=== PATIENT | male | born 1955 | race Caucasian/White ===

== ENCOUNTER 2021-12-25 23:20 | Emergency (ER) | payer OTHER ==
[~2021-12-25] VITALS: Ht 175.3 cm; Wt 88.5 kg
[2021-12-25 23:43] VITALS: BP 151/71
--- NOTE | 2021-12-26 00:15 | NUR ---
received pt from intake and placed to bed 12. pt currently a/o x 4, gcs 15. able to move all extremities freely. pt is a 66 year old male with hx of HTN coming from home for cc of RLQ abd pain that started at 2200 last night. pt reports increased nausea and rates pain as 7/10 and throbbing. sts has loss of appetite at this time. currently pending for CT
--- NOTE | 2021-12-26 00:19 | NUR ---
Dr. Funk at bedside for MSE
[2021-12-26 00:32] LABS: BASOPHILS % (AUTO) 0.2 % (0.0-2.0); EOSINOPHILS % (AUTO) 0.2 % (0.0-4.0); HEMATOCRIT 40.2 % (36-52); HEMOGLOBIN 13.6 g/dL (12.0-18.0); LYMPHOCYTES # (AUTO) 1.7 K/uL (2.0-11.5); MEAN CORPUSCULAR HEMOGLOBIN 31 pg (27-31); MEAN CORPUSCULAR HGB CONC 34 g/dL (33-37); MEAN CORPUSCULAR VOLUME 90.6 fL (80-94); MONOCYTES # (AUTO) 0.7 K/uL (0.8-1.0); MONOCYTES % (AUTO) 6.5 % (1.7-9.3); NEUTROPHILS # (AUTO) 8.1 K/uL (1.8-7.7); NEUTROPHILS % (AUTO) 77.1 % (42.2-75.2); PLATELET COUNT (AUTO) 187 K/uL (140-450); RED BLOOD CELL COUNT(AUTO) 4.44 MIL/uL (4.20-6.10); WHITE BLOOD COUNT (AUTO) 10.5 K/uL (4.8-10.8)
[2021-12-26 00:33] LABS: APPEARANCE,URINE CLEAR (CLEAR); BILIRUBIN,URINE NEGATIVE (NEGATIVE); BLOOD, URINE 3+ (NEGATIVE); COLOR,URINE YELLOW (YELLOW); LEUKOCYTE ESTERASE ,URINE NEGATIVE (NEGATIVE); NITRITE, URINE NEGATIVE (NEGATIVE); PH,URINE 5.5 (5.0-9.0); UGLUCOSE NEGATIVE (NEGATIVE)
[2021-12-26 00:56] LABS: RBC,URINE 11-20 (MOD) /HPF (0-5); WBC,URINE 0-5 /HPF (0-5)
[2021-12-26 01:11] LABS: ALBUMIN 3.8 g/dL (3.4-5.0); ANION GAP 12.1 (8-16); CARBON DIOXIDE 26.6 mmol/L (21-32); POTASSIUM 3.7 mmol/L (3.5-5.1); TOTAL BILIRUBIN 0.5 mg/dL (0.0-1.0)
--- NOTE | 2021-12-26 01:37 | NUR ---
NAD at this time. awaiting CT
[2021-12-26 04:00] VITALS: BP 144/90
[2021-12-26] MEDS ORDERED: IBUP-2213 PO (04:43)
[2021-12-26] MEDS ORDERED: TAMS0.4C96 PO (04:43)
[2021-12-26] MEDS ORDERED: CIPR500T4 PO (04:43)
--- NOTE | 2021-12-26 04:55 | NUR ---
d/c with VSS. d/c education given. opportunity to ask questions given and answered. rx of flomax, motrin and cipro given. IV site removed, bleeding controlled with sterile gauze and reinforced with tape.
== END 2021-12-26 04:55 | disposition home or self-care (01) ==
LOC: MED 23:20
DX: N20.0 Calculus of kidney (principal)
CPT/HCPCS: 36415; 74177; 80053; 81001; 82150; 83690; 85025; 99285; Q9967